=== PATIENT | female | born 1950 | race Caucasian/White ===

== ENCOUNTER → 2020-09-24 | Outpatient (CLI) | payer OTHER ==
[~2020-09-24] MED LIST: ATOR1TAB21 PO; D3400CAP PO; FISH1000 PO; INVO300T PO; LEVO75TA4 PO; [UNRECOGNIZED DRUG - CODE] PO
--- NOTE | 2020-09-24 09:22 | REP ---
INDICATION: ERYTHOCYSTOSIS, SPLENOMAGALY COMPARISON: None TECHNIQUE: Real time B-mode flores scale ultrasound examination using curved array transducer. FINDINGS: Liver is mildly hyperechoic suggesting fatty infiltration without focal hepatic lesion. Pancreas is incompletely evaluated due to interposed bowel gas but visualized portions appear normal. Spleen is upper limits of normal in size measuring 10.9 x 10.9 x 4.2 cm (splenic index 499). No focal splenic lesions are identified. The bilateral kidneys are normal in reniform shape without hydronephrosis or obvious abnormality. Right kidney measures 11.1 x 5.6 x 5.6 cm. Left kidney measures 11.6 x 5.7 x 5.4 cm. Visualized portions of the abdominal aorta are grossly normal and measures 2.1 cm maximal diameter. IMPRESSION: 1. Mild hepatosteatosis. 2. Spleen is upper limits of normal in size without focal splenic lesion identified. <Electronically signed by Antonio Hernandez > 09/24/20 0918
== END ==
LOC: M RAD 08:35
PROVIDERS: ATTEND Internal Medicine Medical Oncology
DX: K76.0 Fatty (change of) liver, not elsewhere classified (principal); D75.1 Secondary polycythemia